=== PATIENT | male | born 1965 | race American Indian/Alaskan Native ===

== ENCOUNTER 2019-02-24 08:52 | Day surgery (SDC) | payer MEDICARE ==
[~2019-02-24 08:52] MED LIST: ANCEF/STERILE WATER 2 GM/20 ML 2 GM/20 ML SYRINGE IV NR; HEPARIN 10,000 UNITS/10 ML IV ONE; MARCAINE 0.5% INFILTRATI ONE; NACL 0.9% 1000 ML 1,000 ML IV SCH; NACL 0.9% 500 ML IRRIGATION ONE; NACL 0.9% IR ONE
[2019-02-24] MEDS ORDERED: XYLOCAINE MPF 2% ONE (09:16)
[2019-02-24] MEDS ORDERED: DIPRIVAN 10 MG/ML IV ONE (09:16)
[2019-02-24] MEDS ORDERED: SUBLIMAZE ONE (09:16)
[2019-02-24] MEDS ORDERED: NACL 0.9% 500 ML 500 ML ONE (09:38)
[2019-02-24] MEDS ORDERED: HEPARIN 10,000 UNITS/10 ML ONE (09:38)
[2019-02-24] MEDS ORDERED: MARCAINE 0.5% INFILTRATI ONE ×2 (09:38→11:52)
[2019-02-24] MEDS ORDERED: ZOFRAN IV PRN (10:55)
[2019-02-24] MEDS ORDERED: SUBLIMAZE IV PRN (10:55)
[2019-02-24] MEDS ORDERED: DILAUDID IV PRN (10:55)
[2019-02-24] MEDS ORDERED: NARCAN 0.4 MG/1 ML IV PRN (10:55)
--- NOTE | 2019-02-24 10:55 | Anesthesia Day of Surgery ---
Anesthesia Day of Surgery - Day of Surgery Patient Examined: Yes Patient H&P Reviewed: Yes Patient is NPO: Yes Beta Blockers: No Cardiac Clearance: No Pulmonary Clearance: No
--- NOTE | 2019-02-24 10:55 | Anesthesia Consultation ---
Anesthesia Consult and Med Hx Date of service: 02/24/19 - Airway Anesthetic Teeth Evaluation: Good ROM Head & Neck: Adequate Mental/Hyoid Distance: Adequate Mallampati Class: Class II Intubation Access Assessment: Good - Pulmonary Exam CTA: Yes - Cardiac Exam Cardiac Exam: RRR - Pre-Operative Health Status ASA Pre-Surgery Classification: ASA3 Proposed Anesthetic Plan: General - Cardiovascular System Hx Hypertension: Yes (Pt states resolved, no longer treated) - Central Nervous System Hx Psychiatric Problems: No - Endocrine Hx Renal Disease: Yes Hx End Stage Renal Disease: Yes - Hematic Hx Anemia: Yes - Other Systems Hx Cancer: No
[2019-02-24] MEDS ORDERED: NACL 0.9% IR ONE (11:52)
[2019-02-24] MEDS ORDERED: NACL 0.9% 500 ML IRRIGATION ONE (11:52)
[2019-02-24] MEDS ORDERED: HEPARIN 10,000 UNITS/10 ML IV ONE (11:52)
--- NOTE | 2019-02-24 14:47 | Operative Report ---
Operative Report Operative Report: Date of procedure: 02/24/2019 Pre-operative diagnosis: End-stage renal disease, failure of maturation hemodialysis dialysis fistula right arm Post-operative diagnosis: Same Procedure name(s): Revision of brachial artery to brachial vein AV fistula right arm using elevation technique Surgeon: Leonel Cooper MD Sleeve Baster: None Anesthesia: Gen. EBL: Less than 100 mL Specimen(s): None Complications: None Findings: Good caliber AV fistula. Good thrill and bruit post transposition Procedure: Patient in the supine position with the right arm extended the entire extremity is prepped and draped using sterile technique. The AV fistula was easily palpable at the antecubital fossa. I made a longitudinal incision overlying the brachial vein just above the antecubital fossa and extended sequentially to the axilla. The incision was deepened until the brachial vein was identified. Care was taken to identify and preserve the median nerve throughout its entire length. Once the vein was mobilized to the level of the axilla it was encircled using vessel loops it was retracted upward and freed from its vascular base. Side branches were ligated using 3-0 silk ties. The vein was then divided after vascular control was obtained using the beveled technique. I then removed the upper portion of the vessel from underneath the nerves flushed and dilated it with saline. A curved Giana-Wick tunneling device was then used to create the subdermal tunnel. The fistula was then attached to the tunneler and pulled back into the antecubital fossa portion of the incision in a non-rotational fashion. The vessel was then reanastomosed end to end using 6-0 Prolene suture. Prior to completion of the suture line antegrade and retrograde flushing was performed. The suture line was then completed and flow was released back to the fistula. The fistula developed an excellent thrill and bruit. Hemostasis was excellent. The incision was then blocked with 60 mL of Marcaine. The incision was then closed using 3-0 Vicryl subcutaneous 4-0 Monocryl subcuticular. The skin was then sealed using Dermabond equivalent. Patient was then extubated returned to the recovery room in stable condition having tolerated the procedure well. Sponge and needle counts were correct.
--- NOTE | 2019-02-24 14:53 | Short Stay Summary ---
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 Home Medications Medication Instructions Recorded Confirmed Last Taken Type Apixaban [Eliquis] 5 mg PO DAILY 10/27/18 02/22/19 02/21/19 History Multivitamin [Multiple Vitamins] 1 each PO DAILY 10/27/18 02/24/19 02/23/19 09:00 History Patiromer Calcium Sorbitex 8.4 gm PO DAILY 10/27/18 02/24/19 02/22/19 09:00 History [Veltassa] HYDROcodone/ACETAMINOPHEN [Warriormine 1 each PO Q6H PRN #20 tablet 10/28/18 02/22/19 Unknown Rx 5-325 Tablet] Active Medications Fentanyl (Sublimaze) 50 mcg IV Q5MIN PRN PRN Reason: Pain , Severe (7-10) Hydromorphone HCl (Dilaudid) 0.5 mg IV Q10MIN PRN PRN Reason: Pain , Severe (7-10) Stop: 02/24/19 23:59 Cefazolin Sodium (Ancef/Sterile Water 2 Gm/20 Ml) 2 gm in 20 mls @ 80 mls/hr IV PREOP NR; Protocol Stop: 02/24/19 23:59 Sodium Chloride (Nacl 0.9% 1000 Ml) 1,000 mls @ 42 mls/hr IV DIRECT MANE Last Admin: 02/24/19 09:50 Dose: 42 mls/hr Documented by: Naloxone HCl (Narcan 0.4 Mg/1 Ml) 0.1 mg IV Q2MIN PRN PRN Reason: Res Rate </= 8 or 02 SAT < 92% Ondansetron HCl (Zofran) 4 mg IV ONCE PRN PRN Reason: Nausea And Vomiting Stop: 02/24/19 23:59 - Brief post op/procedure progress note Date of procedure: 02/24/19 Procedure: Pre-operative diagnosis: End-stage renal disease, failure of maturation hemodialysis dialysis fistula right arm Post-operative diagnosis: Same Procedure name(s): Revision of brachial artery to brachial vein AV fistula right arm using elevation technique Surgeon: Leonel Dawkins MD Junior Graphic Designer: None Anesthesia: Gen. EBL: Less than 100 mL Specimen(s): None Complications: None Findings: Good caliber AV fistula. Good thrill and bruit post transposition Procedure: Patient in the supine position with the right arm extended the entire extremity is prepped and draped using sterile technique. The AV fistula was easily palpable at the antecubital fossa. I made a longitudinal incision overlying the brachial vein just above the antecubital fossa and extended sequentially to the axilla. The incision was deepened until the brachial vein was identified. Care was taken to identify and preserve the median nerve throughout its entire length. Once the vein was mobilized to the level of the axilla it was encircled using vessel loops it was retracted upward and freed from its vascular base. Side branches were ligated using 3-0 silk ties. The vein was then divided after vascular control was obtained using the beveled technique. I then removed the upper portion of the vessel from underneath the nerves flushed and dilated it with saline. A curved Giana-Wick tunneling device was then used to create the subdermal tunnel. The fistula was then attached to the tunneler and pulled back into the antecubital fossa portion of the incision in a non-rotational fashion. The vessel was then reanastomosed end to end using 6-0 Prolene suture. Prior to completion of the suture line antegrade and r etrograde flushing was performed. The suture line was then completed and flow was released back to the fistula. The fistula developed an excellent thrill and bruit. Hemostasis was excellent. The incision was then blocked with 60 mL of Marcaine. The incision was then closed using 3-0 Vicryl subcutaneous 4-0 Monocryl subcuticular. The skin was then sealed using Dermabond equivalent. Patient was then extubated returned to the recovery room in stable condition having tolerated the procedure well. Sponge and needle counts were correct. - Hospital course Hospital course: Unremarkable - Disposition Condition at discharge: Stable Disposition: TO HOME OR SELFCARE - Discharge Diagnoses (1) Dialysis AV fistula malfunction Status: Chronic Qualifiers: Encounter type: subsequent encounter Qualified Code(s): T82.590D - Other mechanical complication of surgically created arteriovenous fistula, subsequent encounter (2) End stage renal disease on dialysis Status: Chronic Short Stay Discharge Plan Activity: advance as tolerated Weight Bearing Status: Full Weight Bearing Diet: renal Wound: keep clean and dry Special Instructions: no heavy lifting Follow up with: MARLON LUJAN JR, MD [Primary Care Provider] - 7 Days MATTHEW LOPEZ MD [Staff Physician] - 7 Days LEONEL DAWKINS MD [Staff Physician] - 14 Days
[2019-02-24 15:31] VITALS: BP 122/83
--- NOTE | 2019-02-24 16:48 | Post Anesthesia Evaluation ---
- Post Anesthesia Evaluation Patient Participated: Yes Airway Patent: Yes Stable Respiratory Function: Yes Nausea/Vomiting: No Temp > 96.8F: Yes Pain Manageable: Yes Adequeate Hydration: Yes Anesthesia Complications: No
== END 2019-02-24 16:25 | disposition home or self-care (01) ==
LOC: OR 08:52
PROVIDERS: ATTEND Surgery Vascular Surgery
DX: T82.898A Other specified complication of vascular prosthetic devices, implants and grafts, initial encounter (principal); N18.6 End stage renal disease; T82.590A Other mechanical complication of surgically created arteriovenous fistula, initial encounter; I12.0 Hypertensive chronic kidney disease with stage 5 chronic kidney disease or end stage renal disease; Z86.718 Personal history of other venous thrombosis and embolism; Z88.2 Allergy status to sulfonamides; Z98.890 Other specified postprocedural states; Z79.899 Other long term (current) drug therapy; Z99.2 Dependence on renal dialysis; Z88.8 Allergy status to other drugs, medicaments and biological substances; Z86.2 Personal history of diseases of the blood and blood-forming organs and certain disorders involving the immune mechanism; Y83.8 Other surgical procedures as the cause of abnormal reaction of the patient, or of later complication, without mention of misadventure at the time of the procedure; Y92.89 Other specified places as the place of occurrence of the external cause
CPT/HCPCS: 36832; 82803; 82962; J0690; J1170; J1644; J2704; J3010; J7030; J7040

== ENCOUNTER 2019-09-19 18:10 | Inpatient (IN) | payer MEDICARE ==
--- NOTE | 2019-09-19 18:33 | Event Note ---
ED Screening Note ED Screening Note: pt presents with LUQ pain no N/V/D no fever PMHx ESRD on dialysis -yesterday morning This initial assessment/diagnostic orders/clinical plan/treatment(s) is/are subject to change based on patients health status, clinical progression and re- assessment by fellow clinical providers in the ED. Further treatment and workup at subsequent clinical providers discretion. Patient/guardian urged not to elope from the ED as their condition may be serious if not clinically assessed and managed. Initial orders include: labs
[2019-09-19 19:13] LABS: Basophils % (Auto) 0.3 % (0.0-1.8); Eosinophils # (Auto) 0.6 K/mm3 (0.0-0.4); Eosinophils % (Auto) 4.7 % (0.0-4.3); Hematocrit 41.7 % (35.5-45.6); Hemoglobin 13.6 gm/dl (11.8-15.2); Lymphocytes # (Auto) 0.6 K/mm3 (1.2-5.4); Lymphocytes % (Auto) 4.9 % (13.4-35.0); Mean Corpuscular HGB Conc 33 % (32-34); Mean Corpuscular Volume 87 fl (84-94); Monocytes # (Auto) 0.7 K/mm3 (0.0-0.8); Monocytes % (Auto) 5.6 % (0.0-7.3); Platelet Count 197 K/mm3 (140-440); Red Cell Distribution Width 15.8 % (13.2-15.2)
[2019-09-19] MEDS ORDERED: SODIUM CHLORIDE 0.9% 500 ML 500 ML IV ONE (19:24)
[2019-09-19 19:28] LABS: Calcium 8.3 mg/dL (8.4-10.2)
[2019-09-19] MEDS ORDERED: DEXTROSE 50% IN WATER (25GM) 50 ML SYRINGE IV ONE (19:48)
[2019-09-19] MEDS ORDERED: INSULIN REGULAR, HUMAN 100 UNITS/1 ML IV ONE (19:48)
[2019-09-19] MEDS ORDERED: ASPIRIN 81 MG TAB CHEW PO ONE (19:51)
[2019-09-19] MEDS ORDERED: ONDANSETRON 4 MG/2 ML INJ IV ONE (19:55)
--- NOTE | 2019-09-19 20:04 | Emergency Department Report ---
ED General Adult HPI - General Chief complaint: Nausea/Vomiting/Diarrhea Stated complaint: NAUSEA/ABD PAIN Time Seen by Provider: 09/19/19 18:32 Source: patient Mode of arrival: Ambulatory Limitations: No Limitations - History of Present Illness Initial comments: Mr Collier, is s 54 y/o aam with hx of ESRD dialysis TTS, did complete full run dialysis on yesterday, DVT on eliquis 5mg daily, other med carvadilol 6.5 mg bid . Pt presents today for nausea , denies vomiting, denies, sob, no cp, no fever or chills , no diaphoresis. pt has pcp Dr. Gil , Nephrology Dr. Paul. Nausea is rated at 5/10 at this time, pt has not taken nausea medicine states that has his mother to drive him to ed for medication. 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 denies: vomiting, diarrhea, constipation, melena Genitourinary: denies: urgency, dysuria, hematuria Musculoskeletal: denies: back pain, joint swelling, arthralgia Skin: denies: rash, lesions Neurological: as per HPI Psychiatric: denies: anxiety, depression Hematological/Lymphatic: denies: easy bleeding, easy bruising ED Past Medical Hx - Past Medical History Previous Medical History?: Yes Hx Hypertension: Yes (Pt states resolved, no longer treated) Hx Deep Vein Thrombosis: Yes Hx Renal Disease: Yes (Kqtq-[id number]-Ore HD) - Surgical History Past Surgical History?: Yes Additional Surgical History: right arm fistula - Social History Smoking Status: Never Smoker - Medications Home Medications: Home Medications Medication Instructions Recorded Confirmed Last Taken Type Apixaban [Eliquis] 5 mg PO DAILY 10/27/18 02/22/19 02/21/19 History Carvedilol [Coreg] 5 mg PO DAILY 09/19/19 09/19/19 Unknown History ED Physical Exam - General Limitations: No Limitations General appearance: alert, in no apparent distress - Head Head exam: Present: atraumatic, normocephalic - Eye Eye exam: Present: normal appearance, PERRL, EOMI - ENT ENT exam: Present: mucous membranes moist - Neck Neck exam: Present: normal inspection, full ROM. Absent: tenderness, lymphadenopathy, thyromegaly - Expanded Neck Exam Expanded Neck exam: Absent: anterior neck swelling, carotid bruit - Respiratory Respiratory exam: Present: respiratory distress. Absent: wheezes, stridor, chest wall tenderness - Cardiovascular Cardiovascular Exam: Present: regular rate, normal rhythm, normal heart sounds. Absent: systolic murmur, diastolic murmur, rubs, gallop - GI/Abdominal GI/Abdominal exam: Present: soft, normal bowel sounds. Absent: distended, tenderness, guarding, rebound, rigid, bruit, hernia - Rectal Rectal exam: Present: deferred - Extremities Exam Extremities exam: Present: normal inspection, full ROM, normal capillary refill, pedal edema (mild nonpitting ). Absent: tenderness - Back Exam Back exam: Present: normal inspection, full ROM. Absent: tenderness, CVA tenderness (R), CVA tenderness (L) - Neurological Exam Neurological exam: Present: alert, oriented X3, CN II-XII intact, normal gait - Psychiatric Psychiatric exam: Present: normal affect, normal mood - Skin Skin exam: Present: warm, dry, intact, normal color. Absent: rash ED Course Vital Signs 09/19/19 09/19/19 09/19/19 18:11 19:44 21:00 Temperature 97.7 F 99.8 F H Pulse Rate 104 H 95 H 91 H Respiratory 18 17 18 Rate Blood Pressure 119/89 131/87 Blood Pressure 131/87 [Left] O2 Sat by Pulse 98 97 96 Oximetry - Reevaluation(s) Reevaluation #1: Consulted ED attending , recommendation not likely Sepsis, will rule ACS, correct electrolytes, ct abd pelvis. 09/19/19 20:06 ED Medical Decision Making - Lab Data Result diagrams: 09/19/19 18:38 09/19/19 18:38 Labs 09/19/19 09/19/19 09/19/19 18:38 18:38 18:38 WBC 13.0 H RBC 4.80 Hgb 13.6 Hct 41.7 MCV 87 MCH 28 MCHC 33 RDW 15.8 H Plt Count 197 Lymph % (Auto) 4.9 L Arthur % (Auto) 5.6 Eos % (Auto) 4.7 H Baso % (Auto) 0.3 Lymph # 0.6 L Arthur # 0.7 Eos # 0.6 H Baso # 0.0 Seg Neutrophils % 84.5 H Seg Neutrophils # 11.0 H Sodium 129 L Potassium 6.1 H* Chloride 88.9 L Carbon Dioxide 24 Anion Gap 22 BUN 45 H Creatinine 10.3 H Estimated GFR 6 BUN/Creatinine Ratio 4 Glucose 145 H POC Glucose Calcium 8.3 L Total Bilirubin 0.30 Direct Bilirubin < 0.2 Indirect Bilirubin 0.1 AST 13 ALT 10 Alkaline Phosphatase 69 Total Creatine Kinase 232 H Troponin T 0.500 H* Total Protein 8.5 H Albumin 3.6 L Albumin/Globulin Ratio 0.7 Triglycerides 72 Cholesterol 181 LDL Cholesterol Direct 130 HDL Cholesterol 44 Cholesterol/HDL Ratio 4.11 Lipase 19 09/19/19 20:14 WBC RBC Hgb Hct MCV MCH MCHC RDW Plt Count Lymph % (Auto) Arthur % (Auto) Eos % (Auto) Baso % (Auto) Lymph # Arthur # Eos # Baso # Seg Neutrophils % Seg Neutrophils # Sodium Potassium Chloride Carbon Dioxide Anion Gap BUN Creatinine Estimated GFR BUN/Creatinine Ratio Glucose POC Glucose 117 H Calcium Total Bilirubin Direct Bilirubin Indirect Bilirubin AST ALT Alkaline Phosphatase Total Creatine Kinase Troponin T Total Protein Albumin Albumin/Globulin Ratio Triglycerides Cholesterol LDL Cholesterol Direct HDL Cholesterol Cholesterol/HDL Ratio Lipase - EKG Data EKG shows normal: sinus rhythm, axis, intervals Rate: normal - EKG Data Interpretation: normal EKG (EKG interp by ed attending, NSR , NO STEMI, ), nonspecific ST-T wave marilia - Radiology Data Radiology results: report reviewed, image reviewed cxr: no infiltrates , no opacities - Medical Decision Making cxr: normal, ekg: NSR, NO ST Elevated OR interp by ed attending, trop: 0.5, NA: 129, K: 6.1, chl: 88.3, Bun: 45 Cr:10.3, pt given ca Gluconate, insulin, d50w, NaHCO3, NS 500 ml, heart score: 2 for risk factors, and symptoms, HERIBERTO score: 1 for hx, Consulted ed attending, recommendation : admit to hospitalist to r/o OR, plan: admit to hospitalist r/o OR, Nausea is resolved at this time. tp denies cp, no sob, no n/v, no diaphoresis, no n/v. Consulted Hospitalist: Recommendation admission dx: elevated trop, Hyperkalemia, discussed tx plan with patient, patient verbalized agreement and understanding of same. pt await bed assignment and admission orders. Hospitalist to see. Critical care attestation.: If time is entered above; I have spent that time in minutes in the direct care of this critically ill patient, excluding procedure time. ED Disposition Clinical Impression: Elevated troponin, Hyperkalemia Disposition: OP ADMIT IP TO THIS HOSP Is pt being admited?: Yes Does the pt Need Aspirin: No Condition: Stable
--- NOTE | 2019-09-19 20:17 | XRay Report ---
CHEST 1 VIEW 7:54 PM INDICATION / CLINICAL INFORMATION: Tachycardia for one day. COMPARISON: None available. FINDINGS: SUPPORT DEVICES: None. HEART / MEDIASTINUM: The heart size is borderline with a left ventricular configuration. Pulmonary va sculature is normal. There is mild aortic tortuosity without aneurysm. LUNGS / PLEURA: No significant pulmonary or pleural abnormality. No pneumothorax. ADDITIONAL FINDINGS: No significant additional findings. IMPRESSION: No acute findings. Signer Name: Jose Gibbs MD Signed: 09/19/2019 8:13 PM Workstation Name: [id number]
[2019-09-19] MEDS ORDERED: SODIUM BICARB 8.4% 50 MEQ/50 ML SYRINGE IV ONE (21:00)
[2019-09-19] MEDS ORDERED: CALCIUM GLUCONATE 1,000 MG in SODIUM CHLORIDE 0.9% 100 ML IV ONE (21:00)
[2019-09-19 21:10] LABS: Alanine Aminotransferase 10 units/L (7-56); Albumin 3.6 g/dL (3.9-5); Bilirubin,Direct < 0.2 mg/dL (0-0.2)
[2019-09-19 21:22] LABS: Chol/HDL Ratio 4.11 %; HDL Cholesterol 44 mg/dL (40-59); LDL Cholesterol,Direct 130 mg/dL (50-130)
[2019-09-19] MEDS ORDERED: ONDANSETRON 4 MG/2 ML INJ IV PRN (22:22)
[2019-09-19] MEDS ORDERED: METOCLOPRAMIDE 10 MG/2 ML INJ IV PRN ×2 (22:24→22:37)
[2019-09-19] MEDS ORDERED: MORPHINE 2 MG/1 ML INJ IV PRN (22:24)
[2019-09-19] MEDS ORDERED: ZOLPIDEM 5 MG TAB PO PRN (22:56)
--- NOTE | 2019-09-19 23:00 | History and Physical Report ---
History of Present Illness Date of examination: 09/19/19 Date of admission: 09/19/2019 Chief complaint: Nausea History of present illness: 54-year-old -Green[place] male with history of left lower extremity DVT on anticoagulation, ESRD on HD, hypertension who presents to [facility] ED with complaints of nausea and abdominal pain for the past day. He states that he has been experiencing nausea. With mild abdominal discomfort for the past 24 hours. He denies emesis. As the day progressed his symptoms did not improve, so he decided to come in for further evaluation. 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 Home Medications Medication Instructions Recorded Confirmed Last Taken Type Apixaban [Eliquis] 5 mg PO DAILY 10/27/18 09/19/19 02/21/19 History Carvedilol [Coreg] 5 mg PO DAILY 09/19/19 09/19/19 Unknown History Active Meds: Active Medications Acetaminophen (Tylenol) 650 mg PO Q4H PRN PRN Reason: Pain MILD(1-3)/Fever >100.5/FERNANDES Apixaban (Eliquis) 5 mg PO DAILY [facility]; Protocol Carvedilol (Coreg) 5 mg PO DAILY [facility] Docusate Sodium (Colace) 100 mg PO BID [facility] Metoclopramide HCl (Reglan) 5 mg IV Q6H PRN PRN Reason: Nausea And Vomiting Morphine Sulfate (Morphine) 2 mg IV Q4H PRN PRN Reason: Pain, Moderate (4-6) Ondansetron HCl (Zofran) 4 mg IV Q6H PRN PRN Reason: Nausea And Vomiting Sodium Chloride (Sodium Chloride Flush Syringe 10 Ml) 10 ml IV BID [facility] Sodium Chloride (Sodium Chloride Flush Syringe 10 Ml) 10 ml IV PRN PRN PRN Reason: LINE FLUSH Review of Systems All systems: negative Gastrointestinal: nausea, other (mild abdominal discomfort) Exam - Physical Exam Narrative exam: General appearance: Present: No acute distress, alert and oriented 3, well- developed, well-nourished adult male - EENT Eyes: Present: PERRL, EOM intact ENT: hearing intact, normal dentition - Neck Neck: Present: supple, normal ROM - Respiratory Respiratory effort: Non-labored Respiratory: bilateral: CTA - Cardiovascular Heart rate:95 (bpm) Rhythm:SR, nonspecific ST/ T-wave changes Heart Sounds: Present: S1, S2. - Extremities Extremities: no ischemia, pulses intact - Peripheral Assessment Peripheral Pulses: within normal limits - Abdominal General gastrointestinal: soft, non-tender, normal bowel sounds, - Integumentary Integumentary: Present: warm, dry - Musculoskeletal Musculoskeletal: able to move all extremities -Neurological Neurological: CN II-XII grossly intact - Psychiatric Psychiatric: cooperative - Constitutional Vitals: Temp Pulse Resp BP Pulse Ox 99.8 F H 91 H 18 131/87 96 09/19/19 19:44 09/19/19 21:00 09/19/19 21:00 09/19/19 21:00 09/19/19 21:00 Results - Labs CBC & Chem 7: 09/19/19 18:38 09/19/19 18:38 Labs: Laboratory Last Values WBC 13.0 K/mm3 (4.5-11.0) H 09/19/19 18:38 RBC 4.80 M/mm3 (3.65-5.03) 09/19/19 18:38 Hgb 13.6 gm/dl (11.8-15.2) 09/19/19 18:38 Hct 41.7 % (35.5-45.6) 09/19/19 18:38 MCV 87 fl (84-94) 09/19/19 18:38 MCH 28 pg (28-32) 09/19/19 18:38 MCHC 33 % (32-34) 09/19/19 18:38 RDW 15.8 % (13.2-15.2) H 09/19/19 18:38 Plt Count 197 K/mm3 (140-440) 09/19/19 18:38 Lymph % (Auto) 4.9 % (13.4-35.0) L 09/19/19 18:38 [place] % (Auto) 5.6 % (0.0-7.3) 09/19/19 18:38 Eos % (Auto) 4.7 % (0.0-4.3) H 09/19/19 18:38 Baso % (Auto) 0.3 % (0.0-1.8) 09/19/19 18:38 Lymph # 0.6 K/mm3 (1.2-5.4) L 09/19/19 18:38 [place] # 0.7 K/mm3 (0.0-0.8) 09/19/19 18:38 Eos # 0.6 K/mm3 (0.0-0.4) H 09/19/19 18:38 Baso # 0.0 K/mm3 (0.0-0.1) 09/19/19 18:38 Seg Neutrophils % 84.5 % (40.0-70.0) H 09/19/19 18:38 Seg Neutrophils # 11.0 K/mm3 (1.8-7.7) H 09/19/19 18:38 Sodium 129 mmol/L (137-145) L 09/19/19 18:38 Potassium 6.1 mmol/L (3.6-5.0) H* 09/19/19 18:38 Chloride 88.9 mmol/L (98-107) L 09/19/19 18:38 Carbon Dioxide 24 mmol/L (22-30) 09/19/19 18:38 Anion Gap 22 mmol/L 09/19/19 18:38 BUN 45 mg/dL (9-20) H 09/19/19 18:38 Creatinine 10.3 mg/dL (0.8-1.5) H 09/19/19 18:38 Estimated GFR 6 ml/min 09/19/19 18:38 BUN/Creatinine Ratio 4 % 09/19/19 18:38 Glucose 145 mg/dL (75-100) H 09/19/19 18:38 POC Glucose 117 (70-105) H 09/19/19 20:14 Calcium 8.3 mg/dL (8.4-10.2) L 09/19/19 18:38 Total Bilirubin 0.30 mg/dL (0.1-1.2) 09/19/19 18:38 Direct Bilirubin < 0.2 mg/dL (0-0.2) 09/19/19 18:38 Indirect Bilirubin 0.1 mg/dL 09/19/19 18:38 AST 13 units/L (5-40) 09/19/19 18:38 ALT 10 units/L (7-56) 09/19/19 18:38 Alkaline Phosphatase 69 units/L (35-129) 09/19/19 18:38 Total Creatine Kinase 232 units/L (55-170) H 09/19/19 18:38 Troponin T 0.500 ng/mL (0.00-0.029) H* 09/19/19 18:38 Total Protein 8.5 g/dL (6.3-8.2) H 09/19/19 18:38 Albumin 3.6 g/dL (3.9-5) L 09/19/19 18:38 Albumin/Globulin Ratio 0.7 % 09/19/19 18:38 Triglycerides 72 mg/dL (2-149) 09/19/19 18:38 Cholesterol 181 mg/dL (50-199) 09/19/19 18:38 LDL Cholesterol Direct 130 mg/dL (50-130) 09/19/19 18:38 HDL Cholesterol 44 mg/dL (40-59) 09/19/19 18:38 Cholesterol/HDL Ratio 4.11 % 09/19/19 18:38 Lipase 19 units/L (13-60) 09/19/19 18:38 - Imaging and Cardiology Imaging and Cardiology: CXR: FINDINGS: SUPPORT DEVICES: None. HEART / MEDIASTINUM: The heart size is borderline with a left ventricular configuration. Pulmonary vasculature is normal. There is mild aortic tortuosity without aneurysm. LUNGS / PLEURA: No significant pulmonary or pleural abnormality. No pneumothorax. ADDITIONAL FINDINGS: No significant additional findings. IMPRESSION: No acute findings. Assessment and Plan Assessment and plan: 54-year-old -Green[place]ic male with history of left lower extremity DVT on anticoagulation, ESRD on HD, hypertension who presents to [facility] ED with complaints of nausea and mild abdominal discomfort for the past day. Hyperkalemia -Potassium on admission 6.1 -Received hyperkalemic cocktail -F/U Potassium labs Elevated Troponin -Possible r/t ESRD leak -Initial troponin 0.500; continue to trend -EKG shows sinus rhythm at [address]-T wave changes -Consult placed to cardiologists Dr. Mosley, pending -Denies CP and SOB -Follows Dr. Gil at [facility] as o/p ESRD on HD -HD // ([facility]) -Last dialyzed on 09/18/19 (completed full session) -Cr on admission 10.3 -Avoid nephrotoxin agents -Renal dose all meds -Nephrology consulted HTN -Monitor BP -On Coreg unsure of home dose; will need to call [facility] to verify' -Start on Coreg 3.125mg BID will adjust if needed Leukocytosis -Likely inflammatory response -WBC 13.0 -Afebrile -Blood cultures pending -Will hold off on starting IV abx for now -Continue to monitor CBC Hx Left Lower Extremity DVT -Anticoagulated on Eliquis DVT PPX -On Eliquis Advance Directives: No VTE prophylaxis?: Chemical Plan of care discussed with patient/family: Yes
[2019-09-20] MEDS ORDERED: SODIUM POLYSTYRENE 15 GM/60 ML ORAL LIQD PO ONE ×2 (03:16→05:12)
[2019-09-20] MEDS ORDERED: DEXTROSE 50% IN WATER (25GM) 50 ML SYRINGE IV ONE (03:17)
[2019-09-20] MEDS ORDERED: INSULIN REGULAR, HUMAN 100 UNITS/1 ML SUB-Q ONE (03:17)
[2019-09-20] MEDS ORDERED: CALCIUM GLUCONATE 1,000 MG in SODIUM CHLORIDE 0.9% 100 ML IV ONE (03:17)
--- NOTE | 2019-09-20 03:22 | Event Note ---
Date: 09/20/19 Potassium now 6.8 (trending up from 6.1) despite patient receiving hyperkalemic cocktail in ED. Spoke with assistant distribution manager who advised to give Kayexalate 60gm, and hyperkalemic cocktail. continue to follow potassium labs.
[2019-09-20 04:51] LABS: Hemoglobin 13.2 gm/dl (11.8-15.2); Mean Corpuscular HGB Conc 33 % (32-34); Mean Corpuscular Volume 87 fl (84-94); Platelet Count 177 K/mm3 (140-440); Red Blood Count 4.58 M/mm3 (3.65-5.03); Red Cell Distribution Width 15.4 % (13.2-15.2)
[2019-09-20 05:04] LABS: Calcium 8.4 mg/dL (8.4-10.2)
[2019-09-20 06:12] LABS: Basophils % (Manual) 0 % (0.0-1.8); Ovalocytes Few; Total Cells Counted 100
[2019-09-20 06:13] LABS: Anisocytosis Few; Platelet Estimate Consistent w Auto
[2019-09-20] MEDS ORDERED: SODIUM CHLORIDE 0.9% 100 ML IV PRN ×2 (06:49→10:41)
[2019-09-20] MEDS ORDERED: CALCIUM CHLORIDE 1,000 MG in SODIUM CHLORIDE 0.9% 100 ML IV ONE (08:57)
[2019-09-20] MEDS: DOCUSATE SODIUM 100 MG CAP PO SCH ×2 (09:00→21:09)
[2019-09-20 09:13] LABS: Hepatitis B Surface Antigen Non-Reactive (Negative); Hepatitis C Virus Antibody Non-Reactive (NonReactive)
--- NOTE | 2019-09-20 09:22 | Consultation ---
History of Present Illness - Reason for Consult Consult date: 09/20/19 end stage renal disease, hyperkalemia - History of Present Illness The pt is a 54 YO AAM, who is well known to our service, with history significant for Hypertension, Systolic CHF, L LE DVT on Eliquis, h/o FSGS and ESRD on hemodialysis (TTS) who presented with c/o left sided abdominal pain and nausea for the past few days. He denies any fever, chills, vomiting, diarrhea, cp, sob, cough, hemoptysis, dizziness, syncope or leg swelling. He was last dialyzed 2 days ago. Labs significant for K to be 6.8 and elevated Troponin. Nephrology was consulted for further evaluation. 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 Home Medications Medication Instructions Recorded Confirmed Last Taken Type Apixaban [Eliquis] 5 mg PO DAILY 10/27/18 09/19/19 02/21/19 History Carvedilol [Coreg] 5 mg PO DAILY 09/19/19 09/19/19 Unknown History Active Meds: Active Medications Acetaminophen (Tylenol) 650 mg PO Q4H PRN PRN Reason: Pain MILD(1-3)/Fever >100.5/FERNANDES Apixaban (Eliquis) 5 mg PO DAILY [facility]; Protocol Carvedilol (Coreg) 3.125 mg PO BID [facility] Docusate Sodium (Colace) 100 mg PO BID [facility] Sodium Chloride (Nacl 0.9%) 100 mls @ 999 mls/hr IV XAVIER PRN PRN Reason: Hypotension Metoclopramide HCl (Reglan) 5 mg IV Q6H PRN PRN Reason: Nausea And Vomiting Morphine Sulfate (Morphine) 2 mg IV Q4H PRN PRN Reason: Pain, Moderate (4-6) Ondansetron HCl (Zofran) 4 mg IV Q6H PRN PRN Reason: Nausea And Vomiting Sodium Chloride (Sodium Chloride Flush Syringe 10 Ml) 10 ml IV BID MANE Sodium Chloride (Sodium Chloride Flush Syringe 10 Ml) 10 ml IV PRN PRN PRN Reason: LINE FLUSH Zolpidem Tartrate (Ambien) 5 mg PO QHS PRN PRN Reason: Sleep Last Admin: 09/19/19 23:55 Dose: 5 mg Documented by: Review of Systems Constitutional: fatigue, other (not feeling well), no weight loss, no weight g ain, no fever, no chills, no anorexia, no weakness Cardiovascular: high blood pressure, no chest pain, no orthopnea, no edema, no syncope, no lightheadedness, no shortness of breath, no dyspnea on exertion, no paroxysmal nocturnal dyspnea, no leg edema, no decreased exercise tolerance Respiratory: no cough, no hemoptysis, no shortness of breath, no dyspnea on exertion Gastrointestinal: no abdominal pain, no nausea, no vomiting, no diarrhea Genitourinary Male: no dysuria, no hematuria, no nocturia Rectal: no bleeding Musculoskeletal: no muscle weakness, no gait dysfunction Integumentary: no rash, no wounds, no jaundice Neurological: no weakness, no convulsions, no aphasia, no change in speech, no change in mentation, no confusion Exam - Vital Signs Vital signs: Vital Signs Temp Pulse Resp BP Pulse Ox 97.7 F 104 H 18 119/89 98 09/19/19 18:11 09/19/19 18:11 09/19/19 18:11 09/19/19 18:11 09/19/19 18:11 - General Appearance General appearance: well-developed, well-nourished, appears stated age, other (no distress) EENT: ATNC, PERRL, hearing intact, vision intact Neck: Present: neck supple, trachea midline Respiratory: Clear to Ascultation Heart: regular, S1S2, no murmurs Gastrointestinal: Present: normoactive bowel sounds. Absent: tenderness, distended Integumentary: no rash, warm and dry Neurologic: no focal deficit, no asterixis, alert and oriented x3 Musculoskeletal: Present: other (amputation of R medical fingers, no edema, R arm AVF) Results - Lab Results 09/20/19 04:08 09/20/19 08:20 Most recent lab results Calcium 8.4 mg/dL (8.4-10.2) 09/20/19 04:08 Assessment and Plan 1. ESRD: His regular schedule is TTS. Due to hyperkalemia will do hemodialysis today. 2. Hyperkalemia: Patient has h/o chronic hyperkalemi due to diet non-compliance. He is also on Veltassa at home which he takes intermittently. Discussed low potassium diet. 3. Abdominal pain. 4. Leukocytosis: Improved. 5. Elevated Troponin. 6. Systolic CHF. 7. Hypertension.
[2019-09-20] MEDS ORDERED: CARVEDILOL 6.25 MG TAB PO SCH (10:00)
[2019-09-20] MEDS ORDERED: APIXABAN 5 MG TAB PO SCH (10:00)
[2019-09-20] MEDS ORDERED: SODIUM CHLORIDE*PRIMING MACHINE ONLY FOR DIALYSIS MC ONE (11:03)
--- NOTE | 2019-09-20 12:57 | Consultation ---
History of Present Illness Consult date: 09/20/19 Requesting physician: HUGH ZHAO Consult reason: elevated troponin History of present illness: The pt is a 54-year-old -[place] male with history of left lower extremity DVT 3 years ago, anticoagulated with Eliquis, ESRD on HD, hypertension. He is regularly followed by Dr. Yinka Godinez at [facility]. He prese nted with c/o left sided abdominal pain and nausea for several days prior to arrival. Serum K+ noted to be 6.1 on admission. He denies any chest pain, vomiting, diaphoresis, dizziness or syncope. He reports compliance with his home medication regimen and dialysis schedule. 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 He denies any additional cardiac history. Cardiology has been consulted for elevated troponin. [place] records reviewed - echo done 08/2019 showed EF 20%, aneurysmal LV apex. Echo done 07/2018 showed EF 20-25%, LV mildly dilated, RV mod to severely dilated, RV systolic function mod reduced. Per Dr. Godinez's notes, pt has h/o NICMP and chronic HFrEF. He is known to be noncompliant with his home medications, including coreg and lisinopril, although he is committed to physical conditioning (exercises 4-5 times per week) and is compliant with cardiac diet and fluid restriction. 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 Home Medications Medication Instructions Recorded Confirmed Last Taken Type Apixaban [Eliquis] 5 mg PO DAILY 10/27/18 09/19/19 02/21/19 History Carvedilol [Coreg] 5 mg PO DAILY 09/19/19 09/19/19 Unknown History Active Meds: Active Medications Acetaminophen (Tylenol) 650 mg PO Q4H PRN PRN Reason: Pain MILD(1-3)/Fever >100.5/FERNANDES Apixaban (Eliquis) 5 mg PO DAILY [facility]; Protocol Carvedilol (Coreg) 3.125 mg PO BID [facility] Docusate Sodium (Colace) 100 mg PO BID [facility] Last Admin: 09/20/19 09:00 Dose: Not Given Documented by: Sodium Chloride (Nacl 0.9%) 100 mls @ 999 mls/hr IV XAVIER PRN PRN Reason: Hypotension Metoclopramide HCl (Reglan) 5 mg IV Q6H PRN PRN Reason: Nausea And Vomiting Morphine Sulfate (Morphine) 2 mg IV Q4H PRN PRN Reason: Pain, Moderate (4-6) Ondansetron HCl (Zofran) 4 mg IV Q6H PRN PRN Reason: Nausea And Vomiting Sodium Chloride (Sodium Chloride Flush Syringe 10 Ml) 10 ml IV BID [facility] Sodium Chloride (Sodium Chloride Flush Syringe 10 Ml) 10 ml IV PRN PRN PRN Reason: LINE FLUSH Zolpidem Tartrate (Ambien) 5 mg PO QHS PRN PRN Reason: Sleep Last Admin: 09/19/19 23:55 Dose: 5 mg Documented by: Review of Systems Constitutional: no weight loss, no weight gain, no fever, no chills, no sweats Ears, nose, mouth and throat: no ear pain, no nose pain, no sinus pressure, no sinus pain Cardiovascular: high blood pressure, no chest pain, no orthopnea, no palpitations, no rapid/irregular heart beat, no edema, no syncope, no light headedness, no shortness of breath, no dyspnea on exertion, no leg edema, no decreased exercise tolerance Respiratory: no cough, no shortness of breath, no dyspnea on exertion, no congestion, no wheezing, no pain on inspiration Gastrointestinal: abdominal pain, nausea, no vomiting, no diarrhea, no constipation, no change in bowel habits Genitourinary Male: no dysuria, no hematuria, no flank pain, no discharge, no urinary frequency, no urinary hesitancy Musculoskeletal: no neck stiffness, no neck pain, no shooting arm pain, no arm numbness/tingling, no low back pain, no shooting leg pain Integumentary: no rash, no pruritis, no redness, no sores, no wounds Neurological: no head injury, no paralysis, no weakness, no parathesias, no numbness, no tingling, no seizures, no syncope Psychiatric: no anxiety Endocrine: no cold intolerance, no heat intolerance Hematologic/Lymphatic: no easy bruising, no easy bleeding Allergic/Immunologic: no urticaria, no wheezing Physical Examination Vital Signs Temp Pulse Resp BP Pulse Ox 97.7 F 104 H 18 119/89 98 09/19/19 18:11 09/19/19 18:11 09/19/19 18:11 09/19/19 18:11 09/19/19 18:11 General appearance: no acute distress HEENT: Positive: PERRL, Normocephaly, Mucus Membranes Moist Neck: Positive: neck supple, trachea midline Cardiac: Positive: Reg Rate and Rhythm, S1/S2 Lungs: Positive: Decreased Breath Sounds Neuro: Positive: Grossly Intact Abdomen: Negative: Tender Skin: Negative: Rash Musculoskeletal: No Pain Extremities: Absent: edema Results 09/20/19 04:08 09/20/19 08:20 Cardiac Enzymes 09/19/19 Range/Units 18:38 AST 13 (5-40) units/L Coagulation 09/20/19 Range/Units 04:08 APTT 32.6 (24.2-36.6) Sec. Lipids 09/19/19 Range/Units 18:38 Triglycerides 72 (2-149) mg/dL Cholesterol 181 (50-199) mg/dL HDL Cholesterol 44 (40-59) mg/dL Cholesterol/HDL Ratio 4.11 % CBC 09/19/19 09/20/19 Range/Units 18:38 04:08 WBC 13.0 H 10.5 (4.5-11.0) K/mm3 RBC 4.80 4.58 (3.65-5.03) M/mm3 Hgb 13.6 13.2 (11.8-15.2) gm/dl Hct 41.7 40.0 (35.5-45.6) % Plt Count 197 177 (140-440) K/mm3 Lymph # 0.6 L (1.2-5.4) K/mm3 Mineral # 0.7 (0.0-0.8) K/mm3 Eos # 0.6 H (0.0-0.4) K/mm3 Baso # 0.0 (0.0-0.1) K/mm3 Comprehensive Metabolic Panel 09/19/19 09/19/19 09/20/19 Range/Units 18:38 18:38 00:49 Sodium 129 L (137-145) mmol/L Potassium 6.1 H* 6.8 H* (3.6-5.0) mmol/L Chloride 88.9 L (98-107) mmol/L Carbon Dioxide 24 (22-30) mmol/L BUN 45 H (9-20) mg/dL Creatinine 10.3 H (0.8-1.5) mg/dL Glucose 145 H (75-100) mg/dL Calcium 8.3 L (8.4-10.2) mg/dL Direct Bilirubin < 0.2 (0-0.2) mg/dL Indirect Bilirubin 0.1 mg/dL AST 13 (5-40) units/L ALT 10 (7-56) units/L Alkaline Phosphatase 69 (35-129) units/L Total Protein 8.5 H (6.3-8.2) g/dL Albumin 3.6 L (3.9-5) g/dL 09/20/19 09/20/19 Range/Units 04:08 08:20 Sodium 132 L (137-145) mmol/L Potassium 6.1 H* 6.0 H (3.6-5.0) mmol/L Chloride 90.0 L (98-107) mmol/L Carbon Dioxide 26 (22-30) mmol/L BUN 51 H (9-20) mg/dL Creatinine 11.5 H (0.8-1.5) mg/dL Glucose 101 H (75-100) mg/dL Calcium 8.4 (8.4-10.2) mg/dL Direct Bilirubin (0-0.2) mg/dL Indirect Bilirubin mg/dL AST (5-40) units/L ALT (7-56) units/L Alkaline Phosphatase (35-129) units/L Total Protein (6.3-8.2) g/dL Albumin (3.9-5) g/dL - Imaging and Cardiology Echo: report reviewed (echo done 08/2019 showed EF 20%, aneurysmal LV apex. Echo done 07/2018 showed EF 20-25%, LV mildly dilated, RV mod to severely dilated, RV systolic function mod reduced. ) EKG: report reviewed, image reviewed EKG interpretations - Telemetry EKG Rhythm: Sinus Rhythm - EKG Sinus rhythms and dysrhythmias: sinus rhythm Myocardial infarction: anterior CA (old age or i Assessment and Plan Currently stable cardiac status. CE elevation pattern appears c/w NSTEMI type II. Echo done 08/2019 showed EF 20%, aneurysmal LV apex. Pt has known NICMP. Cont home cardiac regimen. No plans for additional cardiac w/u at this time. The patient has been seen in conjunction with Dr. Arauz who agrees with the assessment and plan of care. - Patient Problems (1) Hyperkalemia Current Visit: Yes Status: Acute (2) End stage renal disease on dialysis Current Visit: Yes Status: Chronic (3) NSTEMI (non-ST elevated myocardial infarction) Current Visit: Yes Status: Acute Plan to address problem: type II (4) Nonischemic cardiomyopathy Current Visit: Yes Status: Chronic (5) HTN (hypertension) Current Visit: Yes Status: Chronic (6) History of DVT (deep vein thrombosis) Current Visit: Yes Status: Chronic
[2019-09-20] MEDS: CARVEDILOL 3.125 MG TAB PO SCH ×2 (15:00→21:05)
--- NOTE | 2019-09-20 17:01 | Progress Note ---
Assessment and Plan Assessment and plan: 54-year-old -[place] male with history of left lower extremity DVT on anticoagulation, ESRD on HD, hypertension who presents to [facility] ED with complaints of nausea and abdominal pain for the past day. He states that he has been experiencing nausea. With mild abdominal discomfort Patient was noted to have severe hyperkalemia, received hyperkalemia cocktail, with mild improvement, patient received hemodialysis Also had elevated troponins, probably nonspecific due to NSTEMI type 2, evaluated by photolith operator, continue conservative management --Persistent hyperkalemia; Received hyperkalemia cocktail, also had hemodialysis today Closely monitor electrolytes and adjust as needed --Abdominal pain; slightly improved Pain medications, antiemetics as needed --End-stage renal disease on hemodialysis; HD per schedule, nephrology following --NSTEMI type II; Nonspecific elevation of troponin, probably secondary to ESRD Cardiology following, patient denies chest pain --History of hypertension; Patient's blood pressures in the lower range Closely monitor, PRN antihypertensives --History of DVT; continue Eliquis Monitor closely and adjust the management as needed Consults and recommendations noted and appreciated Plan of care reviewed with the patient and his nurse Disposition; follow clinically, DC home when stable And cleared by consultants History Interval history: Patient seen and examined, medical records reviewed Admitted with abdominal pain and hyperkalemia Received hemodialysis today Feels slightly better Vital signs reviewed Hospitalist Physical - Constitutional Vitals: Temp Pulse Resp BP Pulse Ox 98.6 F 86 18 91/61 94 09/20/19 15:40 09/20/19 15:40 09/20/19 15:40 09/20/19 15:40 09/20/19 15:40 General appearance: Present: no acute distress, well-nourished - EENT Eyes: Present: PERRL, EOM intact - Neck Neck: Present: supple, normal ROM - Respiratory Respiratory effort: normal Respiratory: bilateral: diminished, negative: rales, rhonchi, wheezing - Cardiovascular Rhythm: regular Heart Sounds: Present: S1 & S2 - Extremities Extremities: no ischemia, No edema - Abdominal General gastrointestinal: soft, non-tender, non-distended, normal bowel sounds - Integumentary Integumentary: Present: clear, warm - Psychiatric Psychiatric: appropriate mood/affect, cooperative - Neurologic Neurologic: CNII-XII intact, moves all extremities Results - Labs CBC & Chem 7: 09/20/19 04:08 09/20/19 08:20 Labs: Laboratory Last Values WBC 10.5 K/mm3 (4.5-11.0) 09/20/19 04:08 RBC 4.58 M/mm3 (3.65-5.03) 09/20/19 04:08 Hgb 13.2 gm/dl (11.8-15.2) 09/20/19 04:08 Hct 40.0 % (35.5-45.6) 09/20/19 04:08 MCV 87 fl (84-94) 09/20/19 04:08 MCH 29 pg (28-32) 09/20/19 04:08 MCHC 33 % (32-34) 09/20/19 04:08 RDW 15.4 % (13.2-15.2) H 09/20/19 04:08 Plt Count 177 K/mm3 (140-440) 09/20/19 04:08 Lymph % (Auto) 4.9 % (13.4-35.0) L 09/19/19 18:38 [place] % (Auto) 5.6 % (0.0-7.3) 09/19/19 18:38 Eos % (Auto) 4.7 % (0.0-4.3) H 09/19/19 18:38 Baso % (Auto) 0.3 % (0.0-1.8) 09/19/19 18:38 Lymph # 0.6 K/mm3 (1.2-5.4) L 09/19/19 18:38 [place] # 0.7 K/mm3 (0.0-0.8) 09/19/19 18:38 Eos # 0.6 K/mm3 (0.0-0.4) H 09/19/19 18:38 Baso # 0.0 K/mm3 (0.0-0.1) 09/19/19 18:38 Add Manual Diff Complete 09/20/19 04:08 Total Counted 100 09/20/19 04:08 Seg Neutrophils % 84.5 % (40.0-70.0) H 09/19/19 18:38 Seg Neuts % (Manual) 80.0 % (40.0-70.0) H 09/20/19 04:08 Band Neutrophils % 0 % 09/20/19 04:08 Lymphocytes % (Manual) 11.0 % (13.4-35.0) L 09/20/19 04:08 Reactive Lymphs % (Man) 0 % 09/20/19 04:08 Monocytes % (Manual) 4.0 % (0.0-7.3) 09/20/19 04:08 Eosinophils % (Manual) 5.0 % (0.0-4.3) H 09/20/19 04:08 Basophils % (Manual) 0 % (0.0-1.8) 09/20/19 04:08 Metamyelocytes % 0 % 09/20/19 04:08 Myelocytes % 0 % 09/20/19 04:08 Promyelocytes % 0 % 09/20/19 04:08 Blast Cells % 0 % 09/20/19 04:08 Nucleated RBC % Not Reportable 09/20/19 04:08 Seg Neutrophils # 11.0 K/mm3 (1.8-7.7) H 09/19/19 18:38 Seg Neutrophils # Man 8.4 K/mm3 (1.8-7.7) H 09/20/19 04:08 Band Neutrophils # 0.0 K/mm3 09/20/19 04:08 Lymphocytes # (Manual) 1.2 K/mm3 (1.2-5.4) 09/20/19 04:08 Abs React Lymphs (Man) 0.0 K/mm3 09/20/19 04:08 Monocytes # (Manual) 0.4 K/mm3 (0.0-0.8) 09/20/19 04:08 Eosinophils # (Manual) 0.5 K/mm3 (0.0-0.4) H 09/20/19 04:08 Basophils # (Manual) 0.0 K/mm3 (0.0-0.1) 09/20/19 04:08 Metamyelocytes # 0.0 K/mm3 09/20/19 04:08 Myelocytes # 0.0 K/mm3 09/20/19 04:08 Promyelocytes # 0.0 K/mm3 09/20/19 04:08 Blast Cells # 0.0 K/mm3 09/20/19 04:08 WBC Morphology Not Reportable 09/20/19 04:08 Hypersegmented Neuts Not Reportable 09/20/19 04:08 Hyposegmented Neuts Not Reportable 09/20/19 04:08 Hypogranular Neuts Not Reportable 09/20/19 04:08 Smudge Cells Not Reportable 09/20/19 04:08 Toxic Granulation Not Reportable 09/20/19 04:08 Toxic Vacuolation Not Reportable 09/20/19 04:08 Dohle Bodies Not Reportable 09/20/19 04:08 Pelger-Huet Anomaly Not Reportable 09/20/19 04:08 Yan Rods Not Reportable 09/20/19 04:08 Platelet Estimate Consistent w auto 09/20/19 04:08 Clumped Platelets Not Reportable 09/20/19 04:08 Plt Clumps, EDTA Not Reportable 09/20/19 04:08 Large Platelets Not Reportable 09/20/19 04:08 Giant Platelets Not Reportable 09/20/19 04:08 Platelet Satelliting Not Reportable 09/20/19 04:08 Plt Morphology Comment Not Reportable 09/20/19 04:08 RBC Morphology Not Reportable 09/20/19 04:08 Dimorphic RBCs Not Reportable 09/20/19 04:08 Polychromasia Not Reportable 09/20/19 04:08 Hypochromasia Not Reportable 09/20/19 04:08 Poikilocytosis Not Reportable 09/20/19 04:08 Anisocytosis Few 09/20/19 04:08 Microcytosis Not Reportable 09/20/19 04:08 Macrocytosis Not Reportable 09/20/19 04:08 Spherocytes Not Reportable 09/20/19 04:08 Pappenheimer Bodies Not Reportable 09/20/19 04:08 Sickle Cells Not Reportable 09/20/19 04:08 Target Cells Not Reportable 09/20/19 04:08 Tear Drop Cells Not Reportable 09/20/19 04:08 Ovalocytes Few 09/20/19 04:08 Helmet Cells Not Reportable 09/20/19 04:08 Rios-Marbury Bodies Not Reportable 09/20/19 04:08 [place] Rings Not Reportable 09/20/19 04:08 Tez Cells Not Reportable 09/20/19 04:08 Bite Cells Not Reportable 09/20/19 04:08 Crenated Cell Not Reportable 09/20/19 04:08 Elliptocytes Not Reportable 09/20/19 04:08 Acanthocytes (Spur) Not Reportable 09/20/19 04:08 Rouleaux Not Reportable 09/20/19 04:08 Hemoglobin C Crystals Not Reportable 09/20/19 04:08 Schistocytes Not Reportable 09/20/19 04:08 Malaria parasites Not Reportable 09/20/19 04:08 Foreign Bodies Not Reportable 09/20/19 04:08 Hem Pathologist Commnt No 09/20/19 04:08 APTT 32.6 Sec. (24.2-36.6) 09/20/19 04:08 Sodium 132 mmol/L (137-145) L 09/20/19 04:08 Potassium 6.0 mmol/L (3.6-5.0) H 09/20/19 08:20 Chloride 90.0 mmol/L (98-107) L 09/20/19 04:08 Carbon Dioxide 26 mmol/L (22-30) 09/20/19 04:08 Anion Gap 22 mmol/L 09/20/19 04:08 BUN 51 mg/dL (9-20) H 09/20/19 04:08 Creatinine 11.5 mg/dL (0.8-1.5) H 09/20/19 04:08 Estimated GFR 6 ml/min 09/20/19 04:08 BUN/Creatinine Ratio 4 % 09/20/19 04:08 Glucose 101 mg/dL (75-100) H 09/20/19 04:08 POC Glucose 117 (70-105) H 09/19/19 20:14 Calcium 8.4 mg/dL (8.4-10.2) 09/20/19 04:08 Total Bilirubin 0.30 mg/dL (0.1-1.2) 09/19/19 18:38 Direct Bilirubin < 0.2 mg/dL (0-0.2) 09/19/19 18:38 Indirect Bilirubin 0.1 mg/dL 09/19/19 18:38 AST 13 units/L (5-40) 09/19/19 18:38 ALT 10 units/L (7-56) 09/19/19 18:38 Alkaline Phosphatase 69 units/L (35-129) 09/19/19 18:38 Total Creatine Kinase 232 units/L (55-170) H 09/19/19 18:38 Troponin T 0.682 ng/mL (0.00-0.029) H* D 09/20/19 08:20 NT-Pro-B Natriuret Pep 17366 pg/mL (0-900) H 09/19/19 22:37 Total Protein 8.5 g/dL (6.3-8.2) H 09/19/19 18:38 Albumin 3.6 g/dL (3.9-5) L 09/19/19 18:38 Albumin/Globulin Ratio 0.7 % 09/19/19 18:38 Triglycerides 72 mg/dL (2-149) 09/19/19 18:38 Cholesterol 181 mg/dL (50-199) 09/19/19 18:38 LDL Cholesterol Direct 130 mg/dL (50-130) 09/19/19 18:38 HDL Cholesterol 44 mg/dL (40-59) 09/19/19 18:38 Cholesterol/HDL Ratio 4.11 % 09/19/19 18:38 Lipase 19 units/L (13-60) 09/19/19 18:38 Hepatitis A IgM Ab Non-reactive (NonReactive) 09/20/19 08:20 Hep Bs Antigen Non-reactive (Negative) 09/20/19 08:20 Hep B Core IgM Ab Non-reactive (NonReactive) 09/20/19 08:20 Hepatitis C Antibody Non-reactive (NonReactive) 09/20/19 08:20 Active Medications - Current Medications Current Medications: Generic Name Dose Route Start Last Admin Trade Name Freq PRN Reason Stop Dose Admin Acetaminophen 650 mg 09/19/19 22:22 Tylenol PO Q4H PRN Pain MILD(1-3)/Fever >100.5/FERNANDES Apixaban 5 mg 09/20/19 10:00 09/20/19 14:56 Eliquis PO 5 mg DAILY [facility] Administration Protocol Carvedilol 3.125 mg 09/20/19 10:00 09/20/19 15:00 Coreg PO Not Given BID [facility] Docusate Sodium 100 mg 09/20/19 10:00 09/20/19 09:00 Colace PO Not Given BID [facility] Sodium Chloride 100 mls @ 999 mls/hr 09/20/19 06:49 Nacl 0.9% IV XAVIER PRN Hypotension Metoclopramide HCl 5 mg 10/27/19 22:37 Reglan IV Q6H PRN Nausea And Vomiting Morphine Sulfate 2 mg 09/19/19 22:24 Morphine IV Q4H PRN Pain, Moderate (4-6) Ondansetron HCl 4 mg 09/19/19 22:22 Zofran IV Q6H PRN Nausea And Vomiting Sodium Chloride 10 ml 09/20/19 10:00 09/20/19 14:57 Sodium Chloride Flush Syringe 10 Ml IV 10 ml BID MANE Administration Sodium Chloride 10 ml 09/19/19 22:22 Sodium Chloride Flush Syringe 10 Ml IV PRN PRN LINE FLUSH Zolpidem Tartrate 5 mg 09/19/19 22:56 09/19/19 23:55 Ambien PO 5 mg QHS PRN Administration Sleep
[2019-09-20] MEDS: ACETAMINOPHEN 325 MG TAB PO PRN (21:05)
[2019-09-21] MEDS: ACETAMINOPHEN 325 MG TAB PO PRN ×3 (05:37→22:06)
[2019-09-21 07:39] LABS: INR 1.38 (0.87-1.13)
[2019-09-21 07:49] LABS: Calcium 8.2 mg/dL (8.4-10.2)
--- NOTE | 2019-09-21 08:35 | Progress Note ---
Assessment and Plan 1. ESRD: His regular schedule is TTS. Hemodialysis today. 2. Hyperkalemia: Persistent hyperkalemia. HD today. Diet non-compliance encouraged. He is on Veltassa at home which he takes intermittently. 3. Abdominal pain: Improving. Normal Lipase. 4. Leukocytosis: Improved. 5. Elevated Troponin. 6. Systolic CHF. 7. Hypertension. 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 Doing ok. Objective - Vital Signs Vital signs: Vital Signs - 12hr 09/20/19 09/20/19 09/20/19 20:51 21:05 22:15 Temperature 99.1 F Pulse Rate 93 H Pulse Rate [ 93 H Apical] Respiratory 18 18 Rate Blood Pressure 143/68 O2 Sat by Pulse 100 Oximetry 09/21/19 09/21/19 09/21/19 00:02 00:03 04:45 Temperature 98.8 F Pulse Rate 82 62 Pulse Rate [ Apical] Respiratory 18 18 Rate Blood Pressure 117/77 102/72 O2 Sat by Pulse 97 96 Oximetry 09/21/19 09/21/19 05:25 05:37 Temperature 100.0 F H Pulse Rate Pulse Rate [ Apical] Respiratory 18 Rate Blood Pressure O2 Sat by Pulse Oximetry - Lab 09/20/19 04:08 09/21/19 06:52 Most recent lab results Calcium 8.2 mg/dL (8.4-10.2) L 09/21/19 06:52 Medications & Allergies - Medications Allergies/Adverse Reactions: Allergies Sulfa (Sulfonamide Antibiotics) Allergy (Verified 02/22/19 17:42) Nausea 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 Home Medications: Home Medications Medication Instructions Recorded Confirmed Last Taken Type Apixaban [Eliquis] 5 mg PO DAILY 10/27/18 09/19/19 02/21/19 History Carvedilol [Coreg] 5 mg PO DAILY 09/19/19 09/19/19 Unknown History Active Medications: Generic Name Dose Route Start Last Admin Trade Name Tiffany PRN Reason Stop Dose Admin Acetaminophen 650 mg 09/19/19 22:22 09/21/19 05:37 Tylenol PO 650 mg Q4H PRN Administration Pain MILD(1-3)/Fever >100.5/FERNANDES Apixaban 2.5 mg 09/21/19 10:00 Eliquis PO BID [facility] Protocol Carvedilol 3.125 mg 09/20/19 10:00 09/20/19 21:05 Coreg PO 3.125 mg BID MANE Administration Docusate Sodium 100 mg 09/20/19 10:00 09/20/19 21:09 Colace PO Not Given BID MANE Sodium Chloride 100 mls @ 999 mls/hr 09/20/19 06:49 Nacl 0.9% IV XAVIER PRN Hypotension Metoclopramide HCl 5 mg 09/19/19 22:37 Reglan IV Q6H PRN Nausea And Vomiting Morphine Sulfate 2 mg 09/19/19 22:24 Morphine IV Q4H PRN Pain, Moderate (4-6) Ondansetron HCl 4 mg 09/19/19 22:22 Zofran IV Q6H PRN Nausea And Vomiting Sodium Chloride 10 ml 09/20/19 10:00 09/20/19 21:09 Sodium Chloride Flush Syringe 10 Ml IV 10 ml BID MANE Administration Sodium Chloride 10 ml 09/19/19 22:22 Sodium Chloride Flush Syringe 10 Ml IV PRN PRN LINE FLUSH Zolpidem Tartrate 5 mg 09/19/19 22:56 09/19/19 23:55 Ambien PO 5 mg QHS PRN Administration Sleep
[2019-09-21] MEDS ORDERED: HEPARIN 10,000 UNITS/10 ML VIAL IV PRN (09:13)
[2019-09-21] MEDS ORDERED: SODIUM CHLORIDE 0.9% 100 ML IV PRN (09:13)
[2019-09-21] MEDS: DOCUSATE SODIUM 100 MG CAP PO SCH ×2 (10:00→22:02)
[2019-09-21] MEDS: CARVEDILOL 3.125 MG TAB PO SCH ×2 (10:00→22:02)
--- NOTE | 2019-09-21 10:37 | Progress Note ---
Assessment and Plan Currently stable cardiac status. Pt denies any cardiac complaints. CE elevation pattern appears c/w NSTEMI type II. Echo done 08/2019 showed EF 20%, aneurysmal LV apex. Pt has known NICMP. Cont home cardiac regimen. No plans for additional cardiac w/u at this time. Pt may discharge home from cardiology standpoint on home cardiac regimen. Recommend pt follow up with his primary ball shagger at [place] within 1-2 weeks of discharge. Pt verbalizes understanding. The patient has been seen in conjunction with Dr. Arauz who agrees with the assessment and plan of care. - Patient Problems (1) Hyperkalemia Current Visit: Yes Status: Acute (2) End stage renal disease on dialysis Current Visit: Yes Status: Chronic (3) NSTEMI (non-ST elevated myocardial infarction) Current Visit: Yes Status: Acute Plan to address problem: type II (4) Nonischemic cardiomyopathy Current Visit: Yes Status: Chronic (5) HTN (hypertension) Current Visit: Yes Status: Chronic (6) History of DVT (deep vein thrombosis) Current Visit: Yes Status: Chronic Subjective Date of service: 09/21/19 Principal diagnosis: hyperkalemia; abd pain Interval history: pt resting in bed, states he is feeling well, no current complaints. in SR on telemetry. Objective Last Vital Signs Temp 98.8 F 09/21/19 07:28 Pulse 62 09/21/19 04:45 Resp 18 09/21/19 07:28 BP 99/64 09/21/19 07:28 Pulse Ox 96 09/21/19 04:45 - Physical Examination General: No Apparent Distress HEENT: Positive: PERRL, Normocephaly, Mucus Membranes Moist Neck: Positive: neck supple, trachea midline Cardiac: Positive: Reg Rate and Rhythm, S1/S2 Lungs: Positive: Decreased Breath Sounds Neuro: Positive: Grossly Intact Abdomen: Negative: Tender Skin: Negative: Rash Musculoskeletal: No Pain Extremities: Absent: edema - Labs and Meds Coagulation 09/21/19 Range/Units 06:52 PT 16.8 H (12.2-14.9) Sec. INR 1.38 H (0.87-1.13) Comprehensive Metabolic Panel 09/20/19 09/21/19 Range/Units 18:30 06:52 Sodium 129 L (137-145) mmol/L Potassium 4.7 D 6.1 H* D (3.6-5.0) mmol/L Chloride 87.7 L (98-107) mmol/L Carbon Dioxide 24 (22-30) mmol/L BUN 41 H (9-20) mg/dL Creatinine 10.3 H (0.8-1.5) mg/dL Glucose 114 H (75-100) mg/dL Calcium 8.2 L (8.4-10.2) mg/dL - Imaging and Cardiology EKG: report reviewed, image reviewed Echo: report reviewed (echo done 08/2019 showed EF 20%, aneurysmal LV apex. Echo done 07/2018 showed EF 20-25%, LV mildly dilated, RV mod to severely dilated, RV systolic function mod reduced. ) - Telemetry EKG Rhythm: Sinus Rhythm - EKG Sinus rhythms and dysrhythmias: sinus rhythm Myocardial infarction: anterior CA (old age or i
--- NOTE | 2019-09-21 10:44 | Progress Note ---
Assessment and Plan Assessment and plan: 54-year-old -[place] Islander male with history of left lower extremity DVT on anticoagulation, ESRD on HD, hypertension who presents to [facility] ED with complaints of nausea and abdominal pain for the past day. He states that he has been experiencing nausea. With mild abdominal discomfort Patient was noted to have severe hyperkalemia, received hyperkalemia cocktail, with mild improvement, patient received hemodialysis Also had elevated troponins, probably nonspecific due to NSTEMI type 2, evaluated by motion study engineer, continue conservative management --Persistent hyperkalemia; For dialysis today, substance addiction coordinator aware --Abdominal pain; slightly improved Pain medications, antiemetics as needed --End-stage renal disease on hemodialysis; HD per schedule, nephrology following Chronically elevated troponin due to end-stage renal disease Cardiology input appreciated --History of hypertension; Patient's blood pressures in the lower range Closely monitor, PRN antihypertensives --History of DVT; continue Eliquis Disposition; discharge home when potassium and sodium are improved. History Interval history: Complaining of nausea and tingling feeling all over Review of systems Constitutional: No fevers, no malaise, no joint pains CVS: No chest pain, no orthopnea, no pedal edema GI: No abdominal pain, no diarrhea, no vomiting, no constipation Respiratory: No shortness of breath, no wheezing, no coughing Hospitalist Physical - Physical exam Narrative exam: General.: Appears well, no distress, nontoxic HEENT: Moist mucous membranes, extraocular muscles intact, no lymphadenopathy Neck: supple Cardiac: S1-S2 heard Lungs: clear to auscultation bilaterally Abdomen: soft , nontender, nondistended, bowel sounds positive Extremities: no edema clubbing or cyanosis Skin: no rash or lesions Neurologic: no gross focal deficits Psych: calm, and cooperative, appears very garvey - Constitutional Vitals: Temp Pulse Resp BP Pulse Ox 98.8 F 62 18 99/64 96 09/21/19 07:28 09/21/19 04:45 09/21/19 07:28 09/21/19 07:28 09/21/19 04:45 General appearance: Present: no acute distress, well-nourished Results - Labs CBC & Chem 7: 09/20/19 04:08 09/21/19 06:52 Labs: Laboratory Last Values WBC 10.5 K/mm3 (4.5-11.0) 09/20/19 04:08 RBC 4.58 M/mm3 (3.65-5.03) 09/20/19 04:08 Hgb 13.2 gm/dl (11.8-15.2) 09/20/19 04:08 Hct 40.0 % (35.5-45.6) 09/20/19 04:08 MCV 87 fl (84-94) 09/20/19 04:08 MCH 29 pg (28-32) 09/20/19 04:08 MCHC 33 % (32-34) 09/20/19 04:08 RDW 15.4 % (13.2-15.2) H 09/20/19 04:08 Plt Count 177 K/mm3 (140-440) 09/20/19 04:08 Lymph % (Auto) 4.9 % (13.4-35.0) L 09/19/19 18:38 Warrick % (Auto) 5.6 % (0.0-7.3) 09/19/19 18:38 Eos % (Auto) 4.7 % (0.0-4.3) H 09/19/19 18:38 Baso % (Auto) 0.3 % (0.0-1.8) 09/19/19 18:38 Lymph # 0.6 K/mm3 (1.2-5.4) L 09/19/19 18:38 Warrick # 0.7 K/mm3 (0.0-0.8) 09/19/19 18:38 Eos # 0.6 K/mm3 (0.0-0.4) H 09/19/19 18:38 Baso # 0.0 K/mm3 (0.0-0.1) 09/19/19 18:38 Add Manual Diff Complete 09/20/19 04:08 Total Counted 100 09/20/19 04:08 Seg Neutrophils % 84.5 % (40.0-70.0) H 09/19/19 18:38 Seg Neuts % (Manual) 80.0 % (40.0-70.0) H 09/20/19 04:08 Band Neutrophils % 0 % 09/20/19 04:08 Lymphocytes % (Manual) 11.0 % (13.4-35.0) L 09/20/19 04:08 Reactive Lymphs % (Man) 0 % 09/20/19 04:08 Monocytes % (Manual) 4.0 % (0.0-7.3) 09/20/19 04:08 Eosinophils % (Manual) 5.0 % (0.0-4.3) H 09/20/19 04:08 Basophils % (Manual) 0 % (0.0-1.8) 09/20/19 04:08 Metamyelocytes % 0 % 09/20/19 04:08 Myelocytes % 0 % 09/20/19 04:08 Promyelocytes % 0 % 09/20/19 04:08 Blast Cells % 0 % 09/20/19 04:08 Nucleated RBC % Not Reportable 09/20/19 04:08 Seg Neutrophils # 11.0 K/mm3 (1.8-7.7) H 09/19/19 18:38 Seg Neutrophils # Man 8.4 K/mm3 (1.8-7.7) H 09/20/19 04:08 Band Neutrophils # 0.0 K/mm3 09/20/19 04:08 Lymphocytes # (Manual) 1.2 K/mm3 (1.2-5.4) 09/20/19 04:08 Abs React Lymphs (Man) 0.0 K/mm3 09/20/19 04:08 Monocytes # (Manual) 0.4 K/mm3 (0.0-0.8) 09/20/19 04:08 Eosinophils # (Manual) 0.5 K/mm3 (0.0-0.4) H 09/20/19 04:08 Basophils # (Manual) 0.0 K/mm3 (0.0-0.1) 09/20/19 04:08 Metamyelocytes # 0.0 K/mm3 09/20/19 04:08 Myelocytes # 0.0 K/mm3 09/20/19 04:08 Promyelocytes # 0.0 K/mm3 09/20/19 04:08 Blast Cells # 0.0 K/mm3 09/20/19 04:08 WBC Morphology Not Reportable 09/20/19 04:08 Hypersegmented Neuts Not Reportable 09/20/19 04:08 Hyposegmented Neuts Not Reportable 09/20/19 04:08 Hypogranular Neuts Not Reportable 09/20/19 04:08 Smudge Cells Not Reportable 09/20/19 04:08 Toxic Granulation Not Reportable 09/20/19 04:08 Toxic Vacuolation Not Reportable 09/20/19 04:08 Dohle Bodies Not Reportable 09/20/19 04:08 Pelger-Huet Anomaly Not Reportable 09/20/19 04:08 Yan Rods Not Reportable 09/20/19 04:08 Platelet Estimate Consistent w auto 09/20/19 04:08 Clumped Platelets Not Reportable 09/20/19 04:08 Plt Clumps, EDTA Not Reportable 09/20/19 04:08 Large Platelets Not Reportable 09/20/19 04:08 Giant Platelets Not Reportable 09/20/19 04:08 Platelet Satelliting Not Reportable 09/20/19 04:08 Plt Morphology Comment Not Reportable 09/20/19 04:08 RBC Morphology Not Reportable 09/20/19 04:08 Dimorphic RBCs Not Reportable 09/20/19 04:08 Polychromasia Not Reportable 09/20/19 04:08 Hypochromasia Not Reportable 09/20/19 04:08 Poikilocytosis Not Reportable 09/20/19 04:08 Anisocytosis Few 09/20/19 04:08 Microcytosis Not Reportable 09/20/19 04:08 Macrocytosis Not Reportable 09/20/19 04:08 Spherocytes Not Reportable 09/20/19 04:08 Pappenheimer Bodies Not Reportable 09/20/19 04:08 Sickle Cells Not Reportable 09/20/19 04:08 Target Cells Not Reportable 09/20/19 04:08 Tear Drop Cells Not Reportable 09/20/19 04:08 Ovalocytes Few 09/20/19 04:08 Helmet Cells Not Reportable 09/20/19 04:08 Rios-Escobares Bodies Not Reportable 09/20/19 04:08 [place] Rings Not Reportable 09/20/19 04:08 Tez Cells Not Reportable 09/20/19 04:08 Bite Cells Not Reportable 09/20/19 04:08 Crenated Cell Not Reportable 09/20/19 04:08 Elliptocytes Not Reportable 09/20/19 04:08 Acanthocytes (Spur) Not Reportable 09/20/19 04:08 Rouleaux Not Reportable 09/20/19 04:08 Hemoglobin C Crystals Not Reportable 09/20/19 04:08 Schistocytes Not Reportable 09/20/19 04:08 Malaria parasites Not Reportable 09/20/19 04:08 Foreign Bodies Not Reportable 09/20/19 04:08 Hem Pathologist Commnt No 09/20/19 04:08 PT 16.8 Sec. (12.2-14.9) H 09/21/19 06:52 INR 1.38 (0.87-1.13) H 09/21/19 06:52 APTT 32.6 Sec. (24.2-36.6) 09/20/19 04:08 Sodium 129 mmol/L (137-145) L 09/21/19 06:52 Potassium 6.1 mmol/L (3.6-5.0) H* D 09/21/19 06:52 Chloride 87.7 mmol/L (98-107) L 09/21/19 06:52 Carbon Dioxide 24 mmol/L (22-30) 09/21/19 06:52 Anion Gap 23 mmol/L 09/21/19 06:52 BUN 41 mg/dL (9-20) H 09/21/19 06:52 Creatinine 10.3 mg/dL (0.8-1.5) H 09/21/19 06:52 Estimated GFR 6 ml/min 09/21/19 06:52 BUN/Creatinine Ratio 4 % 09/21/19 06:52 Glucose 114 mg/dL (75-100) H 09/21/19 06:52 POC Glucose 117 (70-105) H 09/19/19 20:14 Calcium 8.2 mg/dL (8.4-10.2) L 09/21/19 06:52 Total Bilirubin 0.30 mg/dL (0.1-1.2) 09/19/19 18:38 Direct Bilirubin < 0.2 mg/dL (0-0.2) 09/19/19 18:38 Indirect Bilirubin 0.1 mg/dL 09/19/19 18:38 AST 13 units/L (5-40) 09/19/19 18:38 ALT 10 units/L (7-56) 09/19/19 18:38 Alkaline Phosphatase 69 units/L (35-129) 09/19/19 18:38 Total Creatine Kinase 232 units/L (55-170) H 09/19/19 18:38 Troponin T 0.682 ng/mL (0.00-0.029) H* D 09/20/19 08:20 NT-Pro-B Natriuret Pep 14834 pg/mL (0-900) H 09/19/19 22:37 Total Protein 8.5 g/dL (6.3-8.2) H 09/19/19 18:38 Albumin 3.6 g/dL (3.9-5) L 09/19/19 18:38 Albumin/Globulin Ratio 0.7 % 09/19/19 18:38 Triglycerides 72 mg/dL (2-149) 09/19/19 18:38 Cholesterol 181 mg/dL (50-199) 09/19/19 18:38 LDL Cholesterol Direct 130 mg/dL (50-130) 09/19/19 18:38 HDL Cholesterol 44 mg/dL (40-59) 09/19/19 18:38 Cholesterol/HDL Ratio 4.11 % 09/19/19 18:38 Lipase 19 units/L (13-60) 09/19/19 18:38 Hepatitis A IgM Ab Non-reactive (NonReactive) 09/20/19 08:20 Hep Bs Antigen Non-reactive (Negative) 09/20/19 08:20 Hep B Core IgM Ab Non-reactive (NonReactive) 09/20/19 08:20 Hepatitis C Antibody Non-reactive (NonReactive) 09/20/19 08:20 Active Medications - Current Medications Current Medications: Generic Name Dose Route Start Last Admin Trade Name Pabloq PRN Reason Stop Dose Admin Acetaminophen 650 mg 09/19/19 22:22 09/21/19 05:37 Tylenol PO 650 mg Q4H PRN Administration Pain MILD(1-3)/Fever >100.5/FERNANDES Apixaban 2.5 mg 09/21/19 10:00 Eliquis PO BID [facility] Protocol Carvedilol 3.125 mg 09/20/19 10:00 09/20/19 21:05 Coreg PO 3.125 mg BID MANE Administration Docusate Sodium 100 mg 09/20/19 10:00 09/20/19 21:09 Colace PO Not Given BID [facility] Heparin Sodium (Porcine) 3,000 unit 09/21/19 09:13 Heparin 10,000 Units/10 Ml IV XAVIER PRN hemodialysis Sodium Chloride 100 mls @ 999 mls/hr 09/21/19 09:13 Nacl 0.9% IV XAVIER PRN Hypotension Metoclopramide HCl 5 mg 09/19/19 22:37 Reglan IV Q6H PRN Nausea And Vomiting Morphine Sulfate 2 mg 09/19/19 22:24 Morphine IV Q4H PRN Pain, Moderate (4-6) Ondansetron HCl 4 mg 09/19/19 22:22 Zofran IV Q6H PRN Nausea And Vomiting Sodium Chloride 10 ml 09/20/19 10:00 09/20/19 21:09 Sodium Chloride Flush Syringe 10 Ml IV 10 ml BID AMNE Administration Sodium Chloride 10 ml 09/19/19 22:22 Sodium Chloride Flush Syringe 10 Ml IV PRN PRN LINE FLUSH Zolpidem Tartrate 5 mg 09/19/19 22:56 09/19/19 23:55 Ambien PO 5 mg QHS PRN Administration Sleep
[2019-09-21] MEDS: APIXABAN 2.5 MG TAB PO SCH ×2 (14:30→22:02)
[2019-09-22 05:58] LABS: Calcium 8.3 mg/dL (8.4-10.2)
[2019-09-22] MEDS ORDERED: SODIUM POLYSTYRENE 15 GM/60 ML ORAL LIQD PO ONE (06:44)
--- NOTE | 2019-09-22 09:36 | Progress Note ---
Assessment and Plan 1. ESRD: Continue hemodialysis three times a week, TTS schedule. 2. Hyperkalemia: Kayexalate ordered. Diet compliance encouraged. He is on Veltassa at home which he takes intermittently. 3. Abdominal pain: CT abdomen / pelvis with no acute process. Normal Lipase. 4. Leukocytosis: Improved. 5. Elevated Troponin. 6. Systolic CHF. 7. Hypertension. 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 Continues to have diffuse abd pain. Objective - Vital Signs Vital signs: Vital Signs - 12hr 09/21/19 09/21/19 09/21/19 22:02 22:06 23:20 Temperature Pulse Rate 84 67 Respiratory 20 18 Rate Respiratory Rate [Abdomen] Blood Pressure 90/50 92/61 O2 Sat by Pulse 99 Oximetry 09/21/19 09/22/19 09/22/19 23:21 04:00 04:03 Temperature 99.1 F Pulse Rate 44 L Respiratory 18 Rate Respiratory 20 Rate [Abdomen] Blood Pressure 97/66 O2 Sat by Pulse 93 Oximetry - Lab 09/20/19 04:08 09/22/19 04:14 Most recent lab results Calcium 8.3 mg/dL (8.4-10.2) L 09/22/19 04:14 Medications & Allergies - Medications Allergies/Adverse Reactions: Allergies Sulfa (Sulfonamide Antibiotics) Allergy (Verified 02/22/19 17:42) Nausea 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 Home Medications: Home Medications Medication Instructions Recorded Confirmed Last Taken Type Apixaban [Eliquis] 5 mg PO DAILY 10/27/18 09/19/19 02/21/19 History Carvedilol [Coreg] 3.125 mg PO BID #60 tablet 09/22/19 Unknown Rx Pantoprazole [Protonix] 40 mg PO QDAY #30 tablet 09/22/19 Unknown Rx Active Medications: Generic Name Dose Route Start Last Admin Trade Name Freq PRN Reason Stop Dose Admin Acetaminophen 650 mg 09/19/19 22:22 09/21/19 22:06 Tylenol PO 650 mg Q4H PRN Administration Pain MILD(1-3)/Fever >100.5/FERNANDES Apixaban 2.5 mg 09/21/19 10:00 09/21/19 22:02 Eliquis PO 2.5 mg BID MANE Administration Protocol Carvedilol 3.125 mg 09/20/19 10:00 09/21/19 22:02 Coreg PO 3.125 mg BID MANE Administration Docusate Sodium 100 mg 09/20/19 10:00 09/21/19 22:02 Colace PO 100 mg BID MANE Administration Heparin Sodium (Porcine) 3,000 unit 09/21/19 09:13 Heparin 10,000 Units/10 Ml IV XAVIER PRN hemodialysis Sodium Chloride 100 mls @ 999 mls/hr 09/21/19 09:13 Nacl 0.9% IV XAVIER PRN Hypotension Metoclopramide HCl 5 mg 09/19/19 22:37 Reglan IV Q6H PRN Nausea And Vomiting Morphine Sulfate 2 mg 09/19/19 22:24 Morphine IV Q4H PRN Pain, Moderate (4-6) Ondansetron HCl 4 mg 09/19/19 22:22 Zofran IV Q6H PRN Nausea And Vomiting Sodium Chloride 10 ml 09/20/19 10:00 09/21/19 22:10 Sodium Chloride Flush Syringe 10 Ml IV 10 ml BID MANE Administration Sodium Chloride 10 ml 09/19/19 22:22 09/21/19 22:09 Sodium Chloride Flush Syringe 10 Ml IV 10 ml PRN PRN Administration LINE FLUSH Zolpidem Tartrate 5 mg 09/19/19 22:56 09/19/19 23:55 Ambien PO 5 mg QHS PRN Administration Sleep
[2019-09-22] MEDS: APIXABAN 2.5 MG TAB PO SCH (10:04)
[2019-09-22] MEDS: CARVEDILOL 3.125 MG TAB PO SCH (10:04)
[2019-09-22] MEDS: DOCUSATE SODIUM 100 MG CAP PO SCH (10:11)
--- NOTE | 2019-09-22 10:15 | Discharge Summary ---
Providers - Providers Date of Admission: 09/19/19 22:23 Attending physician: AALIYAH MACIAS MD 09/19/19 22:24 Consult to Physician [CONS] Routine Comment: Consulting Provider: MATTHEW LOPEZ Physician Instructions: Reason For Exam: ESRD on HD T/Th/S 09/19/19 23:23 Consult to Physician [CONS] Stat Comment: spoke with Dr. Lihn Mosley Consulting Provider: [facility] Physician Instructions: done Reason For Exam: elvated imtiaz zuniga Primary care physician: SOFTWARE APPLICATIONS ENGINEER Hospitalization Condition: Stable Hospital course: 54-year-old -[place] male with history of left lower extremity DVT on anticoagulation, ESRD on HD, hypertension who presents to [facility] ED with complaints of nausea and abdominal pain for the past day. He states that he has been experiencing nausea. With mild abdominal discomfort Patient was noted to have severe hyperkalemia, received hyperkalemia cocktail, with mild improvement, patient received hemodialysis Also had elevated troponins, probably nonspecific due to NSTEMI type 2, evaluated by composite technician, continue conservative management --Persistent hyperkalemia; He received dialysis and potassium improved, patient does have chronic hypokalemia at home, was advised on being adherent with low potassium diet Nonadherence to diet --Nausea/abdominal pain Resolved, patient was given antiemetics and pain meds as needed, PPI --End-stage renal disease on hemodialysis; HD per schedule, nephrology following Chronically elevated troponin due to end-stage renal disease Cardiology input appreciated, no further work-up indicated --History of hypertension; Patient's blood pressures in the lower range Closely monitor, PRN antihypertensives --History of DVT; continue Eliquis Preventative health counseling performed for 17 minutes Disposition: DC-01 TO HOME OR SELFCARE Time spent for discharge: 33 mins Core Measure Documentation - Palliative Care Palliative Care/ Comfort Measures: Not Applicable - Core Measures Any of the following diagnoses?: none Exam - Constitutional Vitals: Temp Pulse Resp BP Pulse Ox 99.1 F 92 H 18 97/66 93 09/21/19 23:21 09/22/19 10:04 09/22/19 04:03 09/22/19 10:04 09/22/19 04:03 General appearance: Present: no acute distress, well-nourished - EENT Eyes: Present: PERRL ENT: hearing intact, clear oral mucosa - Neck Neck: Present: supple, normal ROM - Respiratory Respiratory effort: normal Respiratory: bilateral: CTA - Cardiovascular Heart Sounds: Present: S1 & S2. Absent: rub, click - Extremities Extremities: pulses symmetrical, No edema Peripheral Pulses: within normal limits - Abdominal General gastrointestinal: Present: soft, non-tender, non-distended, normal bowel sounds Male genitourinary: Present: normal - Integumentary Integumentary: Present: clear, warm, dry - Musculoskeletal Musculoskeletal: gait normal, strength equal bilaterally - Psychiatric Psychiatric: appropriate mood/affect, intact judgment & insight - Neurologic Neurologic: CNII-XII intact, moves all extremities Plan Follow up with: PRIMARY CARE, [Primary Care Provider] - 3-5 Days Prescriptions: Carvedilol [Coreg] 3.125 mg PO BID #60 tablet Pantoprazole [Protonix] 40 mg PO QDAY #30 tablet
[2019-09-22] MEDS: ACETAMINOPHEN 325 MG TAB PO PRN (10:19)
--- NOTE | 2019-09-22 17:03 | Cat Scan Report ---
CT ABDOMEN AND PELVIS WITHOUT IV CONTRAST INDICATION: Abdominal pain.. COMPARISON: None available. TECHNIQUE: All CT scans at this facility use dose modulation, automated exposure control, iterative reconstructi on or weight based dosing, when appropriate, to reduce radiation dose to as low as reasonably achieva ble. FINDINGS: Lung Bases: No significant abnormality. Skeletal System: No acute abnormality. ABDOMEN: Liver: No significant abnormality. Gallbladder: Several small stones and sludge are noted in the gallbladder. No gallbladder inflammatio n is seen. Bile Ducts: No significant abnormality. Pancreas: No significant abnormality. Spleen: Spleen is mildly enlarged measuring 14.9 cm in craniocaudal dimension on coronal image 96. Adrenals: No significant abnormality. Kidneys: There is advanced atherosclerotic calcification within the bilateral renal arterial trees. N o acute renal findings. No hydronephrosis. Upper GI tract: No significant abnormality. Lymph Nodes: No significant adenopathy. Aorta: No significant abnormality. Additional Findings: IVC filter is noted. PELVIS: Colon: No acute abnormality. Urinary Bladder and Distal Ureters: No significant abnormality. Appendix: No significant abnormality. Lymph Nodes: No significant adenopathy. Additional Findings: None. IMPRESSION: 1. Within the limitations of non contrast technique, no acute process in the abdomen or pelvis. 2. Cholelithiasis. 3. Splenomegaly. 4. Additional, incidental findings as above. Signer Name: Marquis López MD Signed: 09/22/2019 4:58 PM Workstation Name: [id number]
[2019-09-22 17:25] VITALS: BP 96/67
== END 2019-09-22 19:07 | disposition home or self-care (01) | DRG 280 ==
LOC: ED 18:10 → 4A 22:23
PROVIDERS: ADMIT Internal Medicine; ATTEND Internal Medicine
PROC: 5A1D70Z Performance of Urinary Filtration, Intermittent, Less than 6 Hours Per Day (ICD-10-PCS; principal; 2019-09-20)
PROC: 5A1D70Z Performance of Urinary Filtration, Intermittent, Less than 6 Hours Per Day (ICD-10-PCS; 2019-09-21)
DX: I21.A1 Myocardial infarction type 2 (principal); N18.6 End stage renal disease; I50.20 Unspecified systolic (congestive) heart failure; I13.2 Hypertensive heart and chronic kidney disease with heart failure and with stage 5 chronic kidney disease, or end stage renal disease; I42.8 Other cardiomyopathies; E87.5 Hyperkalemia; D72.829 Elevated white blood cell count, unspecified; Z86.718 Personal history of other venous thrombosis and embolism; Z79.01 Long term (current) use of anticoagulants; Z99.2 Dependence on renal dialysis; Z91.14 Patient's other noncompliance with medication regimen; Z71.89 Other specified counseling; Z88.2 Allergy status to sulfonamides; Z88.1 Allergy status to other antibiotic agents; Z79.899 Other long term (current) drug therapy
CPT/HCPCS: 36415; 71045; 74176; 80048; 80061; 80074; 80076; 82550; 82962; 83690; 83880; 84132; 84484; 85007; 85025; 85610; 85730; 87040; 87116; 93005; 93010; 96365; 96375; G0378; J0610; J1815; J2405; J7030